=== PATIENT | female | born 1995 ===

== ENCOUNTER 2016-12-19 14:42 | Emergency (ER) | payer OTHER ==
[2016-12-19 14:57] VITALS: BP 127/82; PULSE 97; TEMP 99.2
--- NOTE | 2016-12-19 15:05 | C.PDOC ---
History Of Present Illness 21 y/o female presents to the ED with complaints of MCALLISTER yesterday that was resolved and also reports checking her blood pressure at "a pharmacy" and being told it was high. Patient does not remember what was her blood pressure rate and does not take blood pressure medications. No other complaints at this time. Time Seen by Provider: 12/19/16 14:55 Chief Complaint (Nursing): Headache History Per: Patient History/Exam Limitations: no limitations Onset/Duration Of Symptoms: Days Associated Symptoms: denies: Blurred Vision Past Medical History Reviewed: Historical Data, Nursing Documentation, Vital Signs Vital Signs: Last Vital Signs Temp 99.2 F 12/19/16 14:55 Pulse 97 H 12/19/16 14:55 Resp 17 12/19/16 14:55 BP 127/82 12/19/16 14:55 Pulse Ox 99 12/19/16 14:55 Family History: States: No Known Family Hx Review Of Systems Except As Marked, All Systems Reviewed And Found Negative. Constitutional: Negative for: Fever, Chills Eyes: Negative for: Vision Change Respiratory: Negative for: Shortness of Breath Gastrointestinal: Negative for: Nausea, Vomiting, Diarrhea Skin: Negative for: Rash Neurological: Positive for: Headache. Negative for: Weakness, Dizziness Physical Exam - Physical Exam Appears: Non-toxic, No Acute Distress Skin: Normal Color, Warm Head: Atraumatic, Normacephalic Eye(s): bilateral: Normal Inspection Oral Mucosa: Moist Neck: Normal ROM Cardiovascular: Rhythm Regular, No Murmur Respiratory: No Rales, No Rhonchi, No Wheezing Gastrointestinal/Abdominal: Soft, No Tenderness, No Guarding, No Rebound Extremity: Normal ROM, Capillary Refill (<2 seconds) Neurological/Psych: Oriented x3, Normal Speech, Normal Cognition ED Course And Treatment O2 Sat by Pulse Oximetry: 100 (RA) Pulse Ox Interpretation: Normal Medical Decision Making Medical Decision Making: Patient is advised to write down future blood pressure rate and follow up with PMD Disposition Counseled Patient/Family Regarding: Diagnosis, Need For Followup - Disposition Referrals: YOUR,PMD [Other] Disposition: HOME/ ROUTINE Disposition Time: 15:31 Condition: GOOD Instructions: Acute Headache (ED) Forms: Work Excuse Print Language: ITALIAN - Clinical Impression Clinical Impression: Headache - 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 MD/DO has examined the patient and agrees with the treatment plan. - Scribe Statement The provider has reviewed the documentation as recorded by the Fernanda Ram All medical record entries made by the Fernanda were at my direction and personally dictated by me. I have reviewed the chart and agree that the record accurately reflects my personal performance of the history, physical exam, medical decision making, and the department course for this patient. I have also personally directed, reviewed, and agree with the discharge instructions and disposition.
[2016-12-19 15:39] VITALS: O2SAT 100
[2016-12-19 15:54] VITALS: RESP 20
== END 2016-12-19 15:54 | disposition home or self-care (01) ==
LOC: C.ER 14:42
DX: R51 Headache (principal)

== ENCOUNTER 2017-08-22 09:44 | Emergency (ER) | payer SELFPAY ==
[2017-08-22 10:01] VITALS: BMI 25.4
[2017-08-22 10:03] VITALS: BP 113/78; PULSE 73; RESP 18; TEMP 99.5; O2SAT 96
--- NOTE | 2017-08-22 10:13 | C.PDOC ---
History Of Present Illness 22 y/o female presents to ED with complaints of lump to right eye developed this morning. Patient states it just bothers no pain, no discharge, vision changes, use of glasses or contacts. No other complaints at this time. Time Seen by Provider: 08/22/17 10:04 Chief Complaint (Nursing): Eye Problem History Per: Patient History/Exam Limitations: no limitations Onset/Duration Of Symptoms: Hrs Current Symptoms Are (Timing): Still Present Past Medical History Reviewed: Historical Data, Nursing Documentation, Vital Signs Vital Signs: Last Vital Signs Temp 99.5 F 08/22/17 10:00 Pulse 73 08/22/17 10:00 Resp 18 08/22/17 10:00 BP 113/78 08/22/17 10:00 Pulse Ox 96 08/22/17 10:54 - Medical History PMH: No Chronic Diseases Surgical History: No Surg Hx Family History: States: No Known Family Hx - Social History Hx Alcohol Use: No Hx Substance Use: No - Immunization History Hx Tetanus Toxoid Vaccination: No Hx Influenza Vaccination: No Review Of Systems Eyes: Positive for: Eyelid Inflammation, Redness. Negative for: Pain, Vision Change Gastrointestinal: Negative for: Nausea, Vomiting Skin: Negative for: Rash Physical Exam - Physical Exam Appears: Well, Non-toxic, No Acute Distress Skin: Warm, Dry, No Rash Head: Atraumatic, Normacephalic Eye(s): right: Eyelid Inflammation (non tender erythematous nodule to lower lid) , left: Normal Inspection Nose: Normal Oral Mucosa: Moist Neck: Normal ROM, Supple Chest: Symmetrical Extremity: Bilateral: Atraumatic, Normal Color And Temperature, Normal ROM Neurological/Psych: Oriented x3, Normal Speech Gait: Steady ED Course And Treatment O2 Sat by Pulse Oximetry: 96 (ra) Pulse Ox Interpretation: Normal Medical Decision Making Medical Decision Making: Patient with eyelid complaint. Exam c/w chalazion. No conjunctival erythema, foreign body or signs of orbital cellulitis. Patient advised to apply warm compress and will give Rx eye ointment. advise follow up with optho. Disposition Counseled Patient/Family Regarding: Diagnosis, Need For Followup, Rx Given - Disposition Referrals: Tyler Holman [Staff Provider] - Disposition: HOME/ ROUTINE Disposition Time: 10:10 Condition: GOOD Additional Instructions: aplique diandra cinta de medio pulgada de pom[place] al edgar aplicar compresa de toalla caliente al edgar si los sntomas persisten toi ms de diandra semana, acude al especialista en ojos Dr. Holman apply half inch ribbon of ointment to eye apply warm towel compress to eye if symptoms persist for longer than one week go to computer network specialist Dr Holman Prescriptions: Erythromycin 0.5% [Ilytocin] 3.5 gm OD BID #1 tube Instructions: Chalazion (ED) Forms: [employer] (Burkinan) Print Language: BULGARIAN - POA Present On Arrival: None - Clinical Impression Clinical Impression: Chalazion of right eyelid - PA / EXTRACTIONS TECHNICIAN / Resident Statement MD/DO has reviewed & agrees with the documentation as recorded. - Scribe Statement The provider has reviewed the documentation as recorded by the Scribangel Ram All medical record entries made by the Scribe were at my direction and personally dictated by me. I have reviewed the chart and agree that the record accurately reflects my personal performance of the history, physical exam, medical decision making, and the department course for this patient. I have also personally directed, reviewed, and agree with the discharge instructions and disposition.
== END 2017-08-22 10:32 | disposition home or self-care (01) ==
LOC: C.ER 09:44
DX: H00.12 Chalazion right lower eyelid (principal)

== ENCOUNTER 2018-10-12 18:43 | Emergency (ER) | payer OTHER ==
[2018-10-12 18:43] VITALS: BMI 25.4
[2018-10-12 18:59] VITALS: BP 131/82; PULSE 73; RESP 18; TEMP 98.3; O2SAT 98
[2018-10-12 20:23] LABS: SQUAMOUS EPITHIAL 15 /hpf (0-5); URINE BACTERIA RARE (<OCC); URINE BILIRUBIN NEGATIVE (NEGATIVE); URINE BLOOD 1+ (NEGATIVE); URINE CLARITY Hazy (Clear); URINE COLOR Yellow (YELLOW); URINE GLUCOSE (UA) NORMAL (Normal); URINE HYALINE CAST 0-2 /lpf (0-2); URINE LEUKOCYTE ESTERASE NEG Leu/uL (Negative); URINE PROTEIN NEGATIVE (NEGATIVE); URINE UROBILINOGEN NORMAL mg/dL (0.2-1.0)
--- NOTE | 2018-10-12 21:21 | C.PDOC ---
History Of Present Illness 23 year old female presents to the ED c/o suprapubic abdominal pain. Patient reports this morning she had a hard bowel movement. Patient states her LMP was 2 months ago, unsure of actual date. Patient denies fever, chills, nausea, vomiting, diarrhea, rash, back pain, dysuria, hematuria, vaginal bleeding, vaginal discharge. Time Seen by Provider: 10/12/18 19:16 Chief Complaint (Nursing): Abdominal Pain History Per: Patient History/Exam Limitations: no limitations Onset/Duration Of Symptoms: Days Current Symptoms Are (Timing): Still Present Location Of Pain/Discomfort: Suprapubic Radiation Of Pain To:: None Quality Of Discomfort: "Pain" Associated Symptoms: Constipation. denies: Nausea, Vomiting, Diarrhea, Urinary Symptoms Recent travel outside of the [place]: No Additional History Per: Patient Abnormal Vaginal Bleeding: No Last Menstral Period: 2 months ago Past Medical History Reviewed: Historical Data, Nursing Documentation, Vital Signs Vital Signs: Last Vital Signs Temp 98.3 F 10/12/18 18:55 Pulse 73 10/12/18 18:55 Resp 18 10/12/18 18:55 BP 131/82 10/12/18 18:55 Pulse Ox 98 10/12/18 18:55 - Medical History PMH: No Chronic Diseases Surgical History: No Surg Hx Family History: States: Unknown Family Hx - Social History Hx Alcohol Use: No Hx Substance Use: No - Immunization History Hx Tetanus Toxoid Vaccination: No Hx Influenza Vaccination: No Hx Pneumococcal Vaccination: No Review Of Systems Constitutional: Negative for: Fever, Chills Cardiovascular: Negative for: Chest Pain Respiratory: Negative for: Shortness of Breath Gastrointestinal: Positive for: Abdominal Pain, Constipation. Negative for: Nausea, Vomiting Genitourinary: Negative for: Dysuria, Hematuria, Vaginal Discharge, Vaginal Bleeding Skin: Negative for: Rash Neurological: Negative for: Weakness, Numbness, Headache Physical Exam - Physical Exam Appears: Non-toxic, No Acute Distress Skin: Normal Color, Warm, Dry Head: Atraumatic, Normacephalic Eye(s): bilateral: Normal Inspection Oral Mucosa: Moist Neck: Normal ROM, Supple Chest: Symmetrical Cardiovascular: Rhythm Regular Respiratory: Normal Breath Sounds, No Rales, No Rhonchi, No Wheezing Gastrointestinal/Abdominal: Soft, Tenderness (mild suprapubic), No Guarding Back: No CVA Tenderness Extremity: Normal ROM, No Tenderness, No Swelling Neurological/Psych: Oriented x3, Normal Speech, Normal Cognition Gait: Steady ED Course And Treatment - Laboratory Results Lab Results: Urine Color Yellow (YELLOW) 10/12/18 20:12 Urine Clarity Hazy (Clear) 10/12/18 20:12 Urine pH 6.0 (5.0-8.0) 10/12/18 20:12 Ur Specific [place] 1.005 (1.003-1.030) 10/12/18 20:12 Urine Protein Negative mg/dL (NEGATIVE) 10/12/18 20:12 Urine Glucose (UA) Normal mg/dL (Normal) 10/12/18 20:12 Urine Ketones Negative mg/dL (NEGATIVE) 10/12/18 20:12 Urine Blood 1+ (NEGATIVE) H 10/12/18 20:12 Urine Nitrate Negative (NEGATIVE) 10/12/18 20:12 Urine Bilirubin Negative (NEGATIVE) 10/12/18 20:12 Urine Urobilinogen Normal mg/dL (0.2-1.0) 10/12/18 20:12 Ur Leukocyte Esterase Neg Sindi/uL (Negative) 10/12/18 20:12 Urine WBC (Auto) < 1 /hpf (0-5) 10/12/18 20:12 Urine RBC (Auto) < 1 /hpf (0-3) 10/12/18 20:12 Ur Squamous Epith Cells 15 /hpf (0-5) H 10/12/18 20:12 Urine Bacteria Rare (<OCC) 10/12/18 20:12 Hyaline Casts 0-2 /lpf (0-2) 10/12/18 20:12 O2 Sat by Pulse Oximetry: 98 (ON RA) Pulse Ox Interpretation: Normal - Other Rad Abdomen X-Ray X-Ray: Interpreted by Me, Viewed By Me Interpretation: Moderate stool present Progress Note: Plan: - Motrin 600 mg PO. - UA. - POC. - abdominal X-Ray. Patient's urine and POC were negative. X-Ray showed moderate stool. On reevaluation patient reports improvement, abdomen remained soft non tender. Patient advised to follow up with PMD for further evaluation. Disposition Counseled Patient/Family Regarding: Diagnosis, Need For Followup, Rx Given - Disposition Referrals: [facility] [Outside] Disposition: HOME/ ROUTINE Disposition Time: 21:23 Condition: STABLE Additional Instructions: Please follow up with PMD or in clinic Take medications as directed Return to ER if worse Prescriptions: Ibuprofen [Motrin] 600 mg PO Q6H #20 tab Polyethylene Glycol 3350 [Miralax] 17 gm PO DAILY #1 bottle Instructions: High Fiber Diet, Constipation, Adult (DC) Forms: [employer] (Greenlandic) Print Language: KINYARWANDA - Clinical Impression Clinical Impression: Abdominal pain, Constipation - PA / AGRICULTURAL PRODUCE PACKER / Resident Statement MD/DO has reviewed & agrees with the documentation as recorded. - Scribe Statement The provider has reviewed the documentation as recorded by the Scribe Charlie Cuello All medical record entries made by the Scribe were at my direction and perso dana dictated by me. I have reviewed the chart and agree that the record accurately reflects my personal performance of the history, physical exam, medical decision making, and the department course for this patient. I have also personally directed, reviewed, and agree with the discharge instructions and disposition.
--- NOTE | 2018-10-13 11:18 | RAD ---
Date of service: 10/12/2018 HISTORY: abdominal pain COMPARISON: None available. TECHNIQUE: 1 view obtained. FINDINGS: BOWEL: Normal. No obstruction. No free air. BONES: Normal. OTHER FINDINGS: None. IMPRESSION: [id number] constipation.
== END 2018-10-12 21:42 | disposition home or self-care (01) ==
LOC: C.ER 18:43
DX: R10.9 Unspecified abdominal pain (principal); K59.00 Constipation, unspecified